=== PATIENT | female | born 1990 | race African-American/Black ===

== ENCOUNTER 2025-03-24 16:58 | Inpatient (IN) | payer BC ==
[2025-03-24] MEDS: NIFEdipine 10 MG CAPSULE (FP) PO ONE (17:45)
[2025-03-24] MEDS ORDERED: MAGNESIUM 4GM/H20 - 4 GM/100 ML IVPB IVPB ONE ×2 (17:59→18:00)
[2025-03-24 18:18] LABS: ABSOLUTE IMMATURE GRANULOCYTES 0.07 x10^3/uL (0.0-0.031); BASOPHILS # 0.03 x10^3/uL (0.01-0.08); EOSINOPHIL % 1.7 % (0.7-5.8); EOSINOPHILS # 0.19 x10^3/uL (0.04-0.36); MCHC 32.6 g/dl (32.2-35.5); MEAN CELL VOLUME 88.4 fl (79.4-94.8); MEAN PLT VOLUME 9.7 fl (9.4-12.3); MONOCYTE # 1.13 x10^3/uL (0.24-0.86); MONOCYTE % 10.4 % (4.7-12.5); RDW 13.0 % (12.1-16.8)
[2025-03-24] MEDS ORDERED: NIFEdipine 10 MG CAPSULE (FP) PO ONE ×2 (18:20→18:40)
[2025-03-24 18:25] LABS: INR 0.98 (0.83-1.09); PROTHROMBIN TIME (PATIENT) 10.7 SEC (9.7-13.0)
[2025-03-24] MEDS: BETAMET ACET/BETAMET NA PH 30 MG/5 ML VIAL IM STA (18:25)
[2025-03-24 18:28] LABS: ACTIVATED PTT 31.9 SECONDS (25.2-36.5)
[2025-03-24] MEDS: MAGNESIUM SULFATE 20GM/500ML - 20 GM/500 ML INFUS.BAG IVPB SCH (18:40)
[2025-03-24 18:55] LABS: GLUCOSE,RANDOM 79 mg/dL (74-106)
[2025-03-24 18:57] LABS: CO2 23 mmol/L (21-32)
[2025-03-24 18:58] LABS: ALK PHOS 61 U/L (40-150)
[2025-03-24 19:01] LABS: CREATININE 0.69 mg/dL (0.55-1.3); SGOT/AST 30 U/L (5-34); SGPT/ALT 20 U/L (0-55)
[2025-03-24 19:20] VITALS: TEMP 97.3; BMI 34.3
[2025-03-24] MEDS: NIFEdipine E.R. 30 MG TABLET PO SCH (19:45)
[2025-03-24 20:42] LABS: TOT PROT 6.5 g/dl (6.4-8.2)
[2025-03-24] MEDS ORDERED: PENICILLIN G POTASSIUM 5,000,000 (5Mm) UNIT VIAL IVPB ONE (20:43)
[2025-03-24] MEDS ORDERED: LABETALOL HCL 20 MG/4 ML VIAL ONE (21:12)
[2025-03-24] MEDS: LABETALOL HCL 20 MG/4 ML VIAL IVPUSH ONE (21:15)
[2025-03-24 23:20] VITALS: BP 155/89; PULSE 88; RESP 16
[2025-03-24] MEDS: PENICILLIN G POTASSIUM 5,000,000 UNIT/250 ML BAG IVPB ONE (23:24)
== END 2025-03-24 21:40 | disposition short-term general hospital (02) | DRG 833 ==
LOC: JDEL 16:58 → JLDR 17:55
PROVIDERS: ADMIT Obstetrics & Gynecology; ATTEND Obstetrics & Gynecology
DX: O14.12 Severe pre-eclampsia, second trimester (principal); O36.5920 Maternal care for other known or suspected poor fetal growth, second trimester, not applicable or unspecified; Z3A.23 23 weeks gestation of pregnancy
CPT/HCPCS: 36415; 76801-TC; 80053; 82570; 84156; 84550; 85025; 85610; 85730; 86922